=== PATIENT | female | born 1940 | race Caucasian/White ===

== ENCOUNTER 2019-08-26 22:20 | Emergency (ER) | payer MEDICARE, OTHER ==
[2019-08-26 22:31] VITALS: BP 172/67; PULSE 80
--- NOTE | 2019-08-26 23:09 | EDM.PDOC ---
ED HPI GENERAL MEDICAL PROBLEM - General Chief Complaint: Upper Extremity Injury/Pain Stated Complaint: RIGHT BROKEN WRIST Time Seen by Provider: 08/26/19 22:37 Source of Information: Reports: Patient, Family ( and daughter) History Limitations: Reports: No Limitations - History of Present Illness INITIAL COMMENTS - FREE TEXT/NARRATIVE: Patient presents with right wrist pain and swelling after falling on it around 2030 this evening. She says her legs have been weak for a few days; she walks well without assistive devices. She denies hitting her head. No pain except in her right wrist she says. 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: Musculoskeletal History: Reports: Fracture Neurological History: Reports: TIA Social & Family History - Family History Family Medical History: Noncontributory - Tobacco Use Smoking Status *Q: Never Smoker - Caffeine Use Caffeine Use: Reports: Coffee - Recreational Drug Use Recreational Drug Use: No Review of Systems - Review of Systems Review Of Systems: See Below Constitutional: Denies: Chills, Diaphoresis, Fever Eyes: Denies: Vision Change Ears: Denies: Dizziness Nose: Denies: Epistaxis, Pain Mouth/Throat: Denies: Bleeding, Lip Swelling, Pain Respiratory: Denies: Shortness of Breath, Cough Cardiovascular: Denies: Chest Pain, Syncope GI/Abdominal: Denies: Abdominal Pain, Vomiting Genitourinary: Denies: Dysuria Musculoskeletal: Denies: Neck Pain, Shoulder Pain, Arm Pain, Back Pain, Leg Pain, Foot Pain Skin: Denies: Cyanosis, Jaundice, Mottled, Pallor, Diaphoresis Neurological: Denies: Confusion, Dizziness, Headache, Seizure, Syncope, Trouble Speaking, Difficulty Walking Psychiatric: Denies: Confusion, Anxiety, Agitation ED EXAM, GENERAL - Physical Exam Exam: See Below Exam Limited By: No Limitations General Appearance: Alert, WD/WN, No Apparent Distress Eye Exam: Bilateral Eye: EOMI, Normal Inspection, PERRL Ears: Normal External Exam, Hearing Grossly Normal Nose: Normal Inspection, No Blood Throat/Mouth: Normal Inspection, Normal Lips, Normal Voice, No Airway Compromise Head: Atraumatic, Normocephalic Neck: Normal Inspection, Supple, Non-Tender, Full Range of Motion. No: Tender Lateral, Tender Midline Respiratory/Chest: No Respiratory Distress, Lungs Clear, Normal Breath Sounds, No Accessory Muscle Use Cardiovascular: Regular Rate, Rhythm, No Murmur GI/Abdominal: Normal Bowel Sounds, Soft, Non-Tender, No Organomegaly, No Distention Back Exam: Normal Inspection, Full Range of Motion. No: CVA Tenderness (L), CVA Tenderness (R), Paraspinal Tenderness, Vertebral Tenderness Extremities: Normal Inspection (except CC), Normal Range of Motion, Other (right wrist is moderately tender and swollen dorsally with moderate hematoma present. Skin intact. Mild deformity at distal radius. Distal CMS intact. Hand/finger flexion and extension intact.) Neurological: Alert, Oriented, Normal Cognition, No Motor/Sensory Deficits Psychiatric: Normal Affect, Normal Mood Skin Exam: Warm, Dry, Intact, Normal Color, No Rash ED TRAUMA EXTREMITY PROCEDURES - Splinting Right Upper Extremity Splint Site: right wrist Pre-Procedure NV Status: Normal Post-Procedure NV Status: Normal Splint Material: Fiberglass Splint Design: Sugar Tong Applied & Form Fitted By: Provider Provider Post-Splint Application NV Check: NV Status Normal Complications: No Progress/Comments: I attempted to gently reduce the distal radius and believe it is closer to anatomical position prior to splinting. Didn't get post reduction/splinting xrays. Patient tolerated this very well. Course - Vital Signs Last Recorded V/S: Last Vital Signs Temp 97 F 08/26/19 22:20 Pulse 80 08/26/19 22:20 Resp 18 08/26/19 22:20 BP 172/67 H 08/26/19 22:20 Pulse Ox 95 08/26/19 22:20 - Orders/Labs/Meds Orders: Active Orders 24 hr Category Date Time Status Wrist Comp Min 3V Rt [CR] Stat Exams 08/26/19 22:34 Ordered - Re-Assessments/Exams Free Text/Narrative Re-Assessment/Exam: 08/26/19 23:57 Xrays show a Colles fracture of right wrist with 30 degree of dorsal angulation. Mildly displaced fracture of ulnar styloid also. I discussed case with Dr. Mcdonald at [facility] in [place] who advised splinting with attempted reduction if I felt it would be helpful. On Thursday she should go to their clinic NPO for further evaluation and definitive treatment. I discussed findings and treatment plan with patient and family who agree. Placed sling and a sugar tong splint as above. Patient discharged to home in stable condition. Departure - Departure Time of Disposition: 23:35 Disposition: Home, Self-Care 01 Condition: Good Clinical Impression: Colles' fracture of right radius, initial encounter for closed fracture - Discharge Information Additional Instructions: Keep splint on until you see the orthopedic doctor at [facility] on Thursday. I talked with Dr. Harry bahena but I'm not sure if you will see him on Thursday or another doctor. Their number is [phone] at the clinic. You should call them first thing Thursday morning and tell them Dr. Mcdonald wants you to come NPO that morning. Don't eat or drink anything after midnight Thursday night until you see the doctor Thursday. You can use Ibuprofen or Tylenol as needed for pain through the weekend. Keep the sling on most of the time to support and rest your arm in. Sepsis Event Note (ED) - Evaluation Sepsis Screening Result: No Definite Risk - Focused Exam Vital Signs: Vital Signs Temp Pulse Resp BP Pulse Ox 08/26/19 22:20 97 F 80 18 172/67 H 95 - My Orders Last 24 Hours: My Active Orders 08/26/19 22:34 Wrist Comp Min 3V Rt [CR] Stat - Assessment/Plan Last 24 Hours: My Active Orders 08/26/19 22:34 Wrist Comp Min 3V Rt [CR] Stat
--- NOTE | 2019-08-27 10:03 | CR ---
[id number] RAD/RAD Wrist Right 3V Min EXAM: RAD Wrist Right 3V Min CLINICAL DATA: TRAUMA COMPARISON: NO PREVIOUS SIMILAR EXAM IS AVAILABLE. FINDINGS: Distal right radial and ulnar fractures are seen There is dorsal angulation of the distal fracture fragments There is also scapholunate dissociation with question of a subtle scaphoid fracture. IMPRESSION: DISTAL RIGHT RADIAL AND ULNAR FRACTURES Chandrakant Louie MD 08/27/19 1000 Thank you for allowing us to participate in the care of your patient.
== END 2019-08-26 23:50 | disposition home or self-care (01) ==
LOC: KA.ED 22:20
DX: S52.531A Colles' fracture of right radius, initial encounter for closed fracture (principal); S52.611A Displaced fracture of right ulna styloid process, initial encounter for closed fracture; Z79.82 Long term (current) use of aspirin; W19.XXXA Unspecified fall, initial encounter; Y92.009 Unspecified place in unspecified non-institutional (private) residence as the place of occurrence of the external cause
CPT/HCPCS: 25605; 29125; 73110-RT; 99283; 99283-25

== ENCOUNTER 2019-11-11 08:49 | Emergency (ER) | payer MEDICARE, OTHER ==
[2019-11-11] MEDS ORDERED: Ibuprofen 600 MG Tab PO ONE (09:38)
--- NOTE | 2019-11-11 09:49 | EDM.PDOC ---
ED HPI GENERAL MEDICAL PROBLEM - General Chief Complaint: Neck Problem Stated Complaint: stiffness in neck this morning Time Seen by Provider: 11/11/19 09:00 Source of Information: Reports: Patient History Limitations: Reports: No Limitations - History of Present Illness INITIAL COMMENTS - FREE TEXT/NARRATIVE: 79-year-old female woke up early this morning about 3 AM noticed some stiffness in her neck when going to the bathroom. She tried to adjust her pillow to get comfortable without relief. She notices some limitation with her motion with rotation. She notices the pain raise on the paraspinals up to the base of her skull. She denies any radicular symptoms, weakness in her arms, or numbness or tingling. She denies significant headache. She denies feeling ill or recent fever or chills. She denies any nausea or vomiting. She denies any new onset of balance problems or difficulty with her ambulation. She's recently just recovered from surgery on her right wrist fracture. Onset: Today Onset Date: 11/11/19 Onset Time: 03:00 Duration: Constant Location: Reports: Neck Quality: Reports: Ache, Other (Stiffness) Severity: Moderate Improves with: Reports: None Worsens with: Reports: None Associated Symptoms: Reports: No Other Symptoms Posterior Neck Pain Score (Numeric/FACES): 4 - Related Data Allergies Allergy/AdvReac Type Severity Reaction Status Date / Time No Known Allergies Allergy Verified 11/11/19 09:02 Home Meds: Home Meds Aspirin [Aspirin EC] 1 tab PO DAILY 08/26/19 [History] Past Medical History HEENT History: Reports: Impaired Vision [facility] NURSE History: Reports: Musculoskeletal History: Reports: Fracture Other Musculoskeletal History: R wrist fx Neurological History: Reports: TIA - Infectious Disease History Infectious Disease History: Reports: Chicken Pox, Measles, Mumps - Past Surgical History HEENT Surgical History: Reports: Tonsillectomy Neurological Surgical History: Reports: None Social & Family History - Family History Family Medical History: Noncontributory - Caffeine Use Caffeine Use: Reports: Coffee ED ROS GENERAL - Review of Systems Review Of Systems: Comprehensive ROS is negative, except as noted in HPI. ED EXAM, UPPER BACK/NECK PAIN - Physical Exam Exam: See Below Exam Limited By: No Limitations General Appearance: Alert, No Apparent Distress, Thin Eye Exam: Bilateral Eye: EOMI Ears Exam: Hearing Grossly Normal Nose Exam: Normal Inspection Throat/Mouth Exam: Normal Inspection, Normal Voice, No Airway Compromise Head Exam: Atraumatic, Normocephalic. No: Scalp Tenderness Neck Exam: Normal Alignment, Normal Inspection, Limited Range of Motion, Paraspinous Muscle Tender, Stiff Neck. No: Spinous Processes Tender, Tender Midline Nexus Criteria: No: Posterior, Midline Cervical Tenderness, Evidence of Intoxication, Altered Level of Consciousness, Focal Neurological Deficit, Painful Distraction Injuries GI/Abdominal: Non-Tender Back Exam: Normal Inspection Extremities: Normal Inspection, Normal Range of Motion Neurologic: mall manager II-XII nml As Tested, No Motor/Sensory Deficits, Alert, Normal Mood/Affect, Oriented x 3 DTR: 1+: Bicep (R), Bicep (L), Tricep (R), Tricep (L) Psychiatric: Normal Affect, Normal Mood Skin Exam: Normal Color, Warm/Dry Lymphatic: No Adenopathy Course - Vital Signs Last Recorded V/S: Last Vital Signs Temp 97.3 F 11/11/19 08:54 Pulse 69 11/11/19 08:54 Resp 16 11/11/19 08:54 BP 171/78 H 11/11/19 08:54 Pulse Ox 97 11/11/19 08:54 - Orders/Labs/Meds Orders: Active Orders 24 hr Category Date Time Status Cervical Spine 2V or 3V [CR] Stat Exams 11/11/19 09:28 Ordered Meds: Medications Discontinued Medications Generic Name Dose Route Start Last Admin Trade Name Freq PRN Reason Stop Dose Admin Ibuprofen 600 mg 11/11/19 09:38 11/11/19 09:43 Motrin PO 11/11/19 09:39 600 mg ONETIME ONE Administration - Radiology Interpretation Free Text/Narrative:: X-ray cervical spine 3 views: Advanced degenerative changes noted throughout the cervical spine particularly at C5-6, C6-7. Departure - Departure Time of Disposition: 10:04 Disposition: Home, Self-Care 01 Condition: Good Clinical Impression: Neck pain, musculoskeletal, Spondylosis, cervical, with myelopathy - Discharge Information Instructions: Musculoskeletal Pain Referrals: Rosa Maria Ogden PA-C [Primary Care Provider] - Forms: ED Department Discharge Additional Instructions: 1. Ibuprofen 600-800 mg twice a day to 3 times a day with food for 7-10 days. 2. Flexeril 10 mg 1 by mouth 3 times a day when necessary for muscle spasm. 3. Follow-up with your primary care in a week to 10 days if not significantly better, may require a course of physical therapy. Sepsis Event Note (ED) - Evaluation Sepsis Screening Result: No Definite Risk - Focused Exam Vital Signs: Vital Signs Temp Pulse Resp BP Pulse Ox 11/11/19 08:54 97.3 F 69 16 171/78 H 97 - My Orders Last 24 Hours: My Active Orders 11/11/19 09:28 Cervical Spine 2V or 3V [CR] Stat - Assessment/Plan Last 24 Hours: My Active Orders 11/11/19 09:28 Cervical Spine 2V or 3V [CR] Stat Assessment:: Myofascial neck pain Cervical spondylosis without myelopathy or radiculopathy Plan: 1. Ibuprofen 600-800 mg 3 times a day with food for 7-10 days. 2. Flexeril 10 mg 1 by mouth 3 times a day when necessary for muscle spasms 3. I'll up her primary care in a week to 10 days if not significantly better, may benefit from a course of physical therapy for her neck.
--- NOTE | 2019-11-11 10:15 | CR ---
[id number] RAD/RAD Cervical Spine 2-3V EXAM: CERVICAL SPINE 3 VIEWS INDICATION: Stiffness and pain. COMPARISON: None. DISCUSSION: Slight spondylolisthesis C3-C4 and C7-T1. The prevertebral soft tissues are normal in thickness. Moderate to advanced disc degeneration C5-C6 and C6-C7 with mild to moderate changes at the remaining disc levels. Moderate to advanced facet arthropathy throughout the cervical spine. IMPRESSION: 1. Moderate cervical spondylosis. Gregory Poon MD 11/11/19 1014 Thank you for allowing us to participate in the care of your patient.
== END 2019-11-11 10:15 | disposition home or self-care (01) ==
LOC: KA.ED 08:49
DX: M47.12 Other spondylosis with myelopathy, cervical region (principal); Z79.82 Long term (current) use of aspirin; Z86.73 Personal history of transient ischemic attack (TIA), and cerebral infarction without residual deficits
CPT/HCPCS: 72040; 99283; 99283-25; A9270-GY

== ENCOUNTER 2022-08-15 15:55 | Emergency (ER) | payer MEDICARE, OTHER ==
[2022-08-15] MEDS ORDERED: Sodium Chloride 0.9% 10 ML Syringe FLUSH PRN (16:05)
[2022-08-15 16:16] LABS: BASOPHILS ABSOLUTE AUTO 0.01 10^3/uL (0.00-0.10); BASOPHILS PERCENT AUTO 0.1 % (0.0-1.0); EOSINOPHILS ABSOLUTE AUTO 0.01 10^3/uL (0.10-0.30); EOSINOPHILS PERCENT AUTO 0.1 % (1.0-3.0); HEMATOCRIT 32.6 % (37.0-47.0); HEMOGLOBIN 10.3 g/dL (12.0-16.0); IMMATURE GRAN ABSOLUTE AUTO 0.01 10^3/uL (0.00-0.50); IMMATURE GRAN PERCENT AUTO 0.1 % (0.0-5.0); LYMPHOCYTES ABSOLUTE AUTO 0.85 10^3/uL (1.00-4.00); LYMPHOCYTES PERCENT AUTO 9.1 % (20.0-40.0); MEAN CORPUSCULAR HEMOGLOBIN 29.7 pg (27.0-31.0); MEAN CORPUSCULAR HGB CONC 31.6 g/dL (32.0-36.0); MEAN CORPUSCULAR VOLUME 93.9 fL (82.0-92.0); MEAN PLATELET VOLUME 9.1 fL (7.4-10.4); MONOCYTES ABSOLUTE AUTO 1.08 10^3/uL (0.10-0.80); MONOCYTES PERCENT AUTO 11.5 % (2.0-8.0); NEUTROPHILS ABSOLUTE AUTO 7.43 10^3/uL (2.50-7.00); NEUTROPHILS PERCENT AUTO 79.1 % (50.0-70.0); PLATELET COUNT,PLT 196 10^3/uL (150-400); RED BLOOD CELL COUNT 3.47 10^6/uL (3.80-5.50); RED CELL DISTRIBUTION WIDTH 12.8 % (11.5-14.5); WHITE BLOOD CELL COUNT,WBC 9.39 10^3/uL (5.00-10.00)
[2022-08-15 16:32] LABS: ALANINE AMINOTRANSFERASE,ALT 18 U/L (14-63); ALBUMIN 3.19 g/dL (3.40-5.00); ALKALINE PHOSPHATASE 72 U/L (46-116); ANION GAP 13.9 mmol/L (5-15); ASPARTATE AMNIOTRANSFERASE,AST 17 U/L (15-37); BILIRUBIN TOTAL 0.4 mg/dL (0.2-1.0); BLOOD UREA NITROGEN,BUN 35 mg/dL (7-18); CALCIUM 8.1 mg/dL (8.7-10.3); CARBON DIOXIDE,CO2 26.3 mmol/L (21.0-32.0); CHLORIDE,CL 106 mmol/L (98-107); CREATININE 1.49 mg/dL (0.51-1.17); ESTIMATED GFR 35 mL/min (>=60); GLUCOSE RANDOM 129 mg/dL (70-140); POTASSIUM,K 4.2 mmol/L (3.5-5.1); PROTEIN TOTAL,TP 7.2 g/dL (6.4-8.2); SODIUM,NA 142 mmol/L (136-145)
[2022-08-15 16:46] LABS: APPEARANCE,URINE CLEAR (CLEAR); BILIRUBIN,URINE NEGATIVE (NEGATIVE); COLOR,URINE YELLOW (YELLOW); GLUCOSE,URINE NEGATIVE (NEGATIVE); KETONES,URINE NEGATIVE (NEGATIVE); LEUKOCYTE ESTERASE,URINE NEGATIVE (NEGATIVE); NITRITE,URINE NEGATIVE (NEGATIVE); OCCULT BLOOD,URINE MODERATE (NEGATIVE); PH,URINE 6.5 (5.0-9.0); PROTEIN,URINE 100 mg/dL (NEGATIVE); UROBILINOGEN,URINE 0.2 E.U./dL (0.2-1.0)
[2022-08-15 16:55] LABS: BACTERIA,URINE RARE /HPF (NONE TO FEW); EPITHELIAL CELLS,URINE FEW /LPF; WBC,URINE 0-5 /HPF (0-5)
== END 2022-08-15 17:25 | disposition home or self-care (01) ==
LOC: KA.ED 15:55
DX: R07.89 Other chest pain (principal); N28.9 Disorder of kidney and ureter, unspecified; Z79.82 Long term (current) use of aspirin; Z86.73 Personal history of transient ischemic attack (TIA), and cerebral infarction without residual deficits
CPT/HCPCS: 71045; 80053; 81001; 83690; 84484; 85025; 93005; 93010; 99284; 99285; J3490

== ENCOUNTER 2022-10-25 11:26 | Emergency (ER) | payer MEDICARE, OTHER ==
[2022-10-25 11:42] VITALS: BP 143/90; PULSE 83
== END 2022-10-25 12:40 | disposition home or self-care (01) ==
LOC: KA.ED 11:26
DX: M76.61 Achilles tendinitis, right leg (principal); N18.32 Chronic kidney disease, stage 3b; Z86.73 Personal history of transient ischemic attack (TIA), and cerebral infarction without residual deficits; Z79.82 Long term (current) use of aspirin; Z87.891 Personal history of nicotine dependence
CPT/HCPCS: 73610-RT; 99283